=== PATIENT | male | born 1950 | race Caucasian/White ===

== ENCOUNTER 2016-04-14 12:13 | Observation (INO) | payer OTHER, MEDICARE ==
--- NOTE | ~2016-04-14 | CN ---
Consultation Report [facility] [address]. [address] NAME: NICANOR IBRAHIM : 48 STATUS : DIS Aishwarya PAT#: [id number] AGE: 65 ADM/REG DATE : 04/14/16 MR#: [id number] REPORT SERV DATE: 04/15/16 DICTATED BY: DATE: REPORT STATUS : Draft TRANSCRIBED BY: MODL DATE: 04/15/16 NEUROLOGY CONSULTATION DATE OF CONSULTATION: 04/15/2016 REASON FOR CONSULT: Possible TIA. HISTORY OF PRESENT ILLNESS: This is a 65-year-old male who presented to [facility] on 04/14/2016 secondary to TIA-like symptom. The patient reports was reaching up with right arm for item and was noted to have sharp pain radiating from the right arm down to the shoulder and neck. The patient was subsequently noted to have dizzy sensation as if the room is spinning and feels as if he is about to pass out. The patient sat down and within five minutes, the patient's symptoms had completely resolved. The patient reports some tingling sensation in the right shoulder radiating to the right neck and right elbow otherwise denies any weakness. The patient denies any dysarthria, dysphagia, language difficulties, weakness in the arm, or difficulty ambulating with the symptom onset. The patient does have a history of prior stroke. Reports the symptom is not quite as dramatic. The symptom yesterday, the patient was also noted to have severe nausea, as well as sweating. The patient currently does not have any overt symptoms and denies any diplopia, vertigo sensation. The patient currently also denies any focal weakness. The patient denies any prior weakness. The patient denies any current chest pain or chest pain with the symptoms and denies any recent illness, fever, chills, nausea, vomiting, chest pain, or shortness of breath. Of note, the patient does have recent medication adjustment with patient's pravastatin as well as fenofibrate was discontinued due to elevated transaminase. The patient previously was also on anticoagulation secondary to presence of PFO. Also, the patient has stopped this secondary to medication costs. No other changes in medication were otherwise reported. PAST MEDICAL HISTORY: The patient's past medical history is significant for hypertension, history of stroke with no reported residual deficit, history of hyperlipidemia, recent elevation in transaminase with recent stop of pravastatin and fenofibrate, history of previous PFO in the past, so anticoagulation was stopped secondary to cost. FAMILY HISTORY: Significant for hypertension. SOCIAL HISTORY: Denies tobacco, alcohol, recreational drug usage. ALLERGIES: THE PATIENT REPORTS NO KNOWN DRUG ALLERGIES. HOME MEDICATIONS: Consist of allopurinol, amlodipine, aspirin, diclofenac, hydrochlorothiazide, Avapro, omega-3 fatty acid and omeprazole. REVIEW OF SYSTEMS: Negative except for those mentioned in HPI. Consultation Report [address] [place]. [address] NAME: NICANOR IBRAHIM : 49 STATUS : DIS Aishwarya PAT#: [id number] AGE: 65 ADM/REG DATE : 04/14/16 MR#: [id number] REPORT SERV DATE: 04/15/16 DICTATED BY: DATE: REPORT STATUS : Draft TRANSCRIBED BY: JUANITO DATE: 04/15/16 PHYSICAL EXAMINATION: VITAL SIGNS: Overnight, the patient was noted to have vital signs with T-max of 98.6, heart rate of 52 to 73, respiration of 16 to 21, and blood pressure of 142 to 172 over 58 to 100. GENERAL: The patient is well developed, well nourished, in no acute distress. CARDIOVASCULAR: Regular rate and rhythm. No carotid bruits were otherwise auscultated. PULMONARY: Clear to auscultation bilaterally. NEUROLOGIC: Generally, the patient is alert and oriented to person, place, year, and month. Follows simple and 2-step commands. No dysarthria or aphasia was noted. Intact registration and recall. Cranial nerves 2 through 12, pupils equal, round, and reactive to light. Extraocular eye movement was noted to be intact. No nystagmus was seen. Denies diplopia. At the time of evaluation was noted to have symmetrical facial expression and sensation. Midline tongue. Normal palatal movement. Mild decreased hearing in bilateral ears. The patient does have 5/5 bilateral upper and lower extremity strength. No clear pronator drift was otherwise seen. Reports symmetrical sensation bilaterally. Normal [id number] examination without ataxia. Positive reflexes throughout. The patient noted to have normal station and normal gait. LABORATORY STUDIES: Demonstrated white blood cell count of 4.5, hemoglobin of 13.5, hematocrit of 37.9, and platelet count of 129. Chemistry panel; sodium 144, potassium 4.0, chloride 108, bicarb 23, BUN of 27, creatinine 1.01, glucose of 112, calcium of 8.7, magnesium of 1.9, serum cholesterol of 181, HDL of 22 and triglyceride of 438. The patient was noted to have negative hepatitis panel with ALT of 292, AST of 145, TSH of 2.54, and free T4 of 1.0, hemoglobin A1c of 5.2. MRI of the brain otherwise demonstrated no acute process. MRA of the neck demonstrated no significant blockage. Carotid Doppler study was reviewed. Grade 1 stenosis was seen in bilateral internal carotid artery. Echocardiogram is currently pending. Urinalysis demonstrated negative leukocyte esterase, negative nitrite. CT scan of the brain demonstrated no significant acute process. IMPRESSION: 1. Right arm tingling and pain. He has complained of persistent shoulder tingling sensation radiating to the cervical area. The patient reports prior spine injury as well as previous evaluation with MRI. Concern for possible radiculopathy. The was patient demonstrated no focal weakness at this time. We will recommend him conservative therapy. 2. Transient ischemic attack. The patient's dizziness resolved. MRI of the brain is otherwise negative. Symptom onset 04/14/2016 lasting under 5 minutes. Current NIH stroke scale is 0. We are recommending starting the patient on Plavix but continue aspirin 81 mg p.o. daily. We will recommend restart Lipitor 80 mg p.o. at bedtime. Follow up with primary care physician for evaluation of the liver function tests. Otherwise echocardiogram is pending. No significant abnormality was found on echocardiogram. Okay to discharge from Neuro standpoint. RECOMMENDATION: 1. Echocardiogram pending. Consultation Report [address] [place]. [address] NAME: NICANOR IBRAHIM : 48 STATUS : DIS Aishwarya PAT#: [id number] AGE: 65 ADM/REG DATE : 04/14/16 MR#: [id number] REPORT SERV DATE: 04/15/16 DICTATED BY: DATE: REPORT STATUS : Draft TRANSCRIBED BY: JUANITO DATE: 04/15/16 2. Lipitor 80 mg p.o. at bedtime. 3. Aspirin and Plavix. 4. Follow up with PCP after discharge. 5. Okay to discharge from Neuro standpoint after echo. [facility]/JUANITO Nadir Young MD / [id number] CC: Keith Stone MD
--- NOTE | ~2016-04-14 | HP ---
History And Physical [facility] [id number] [place]. [address] NAME: NICANOR IBRAHIM : 48 STATUS : ADM Aishwarya PAT#: [id number] AGE: 65 ADM/REG DATE : 04/14/16 MR#: [id number] REPORT SERV DATE: 04/15/16 DICTATED BY: BC YATES DATE: 04/14/16 REPORT STATUS : Draft TRANSCRIBED BY: MODBeverly DATE: 04/14/16 DATE OF ADMISSION: 04/14/2016 CHIEF COMPLAINT: Presyncope. HISTORY OF PRESENT ILLNESS: This is a 65-year-old man with past medical history of hypertension, prior stroke, and history of PFO, who was prior on anticoagulation, but has discontinued it due to cost. Also, recently being evaluated as an outpatient for transaminitis that was felt to be secondary to statin and fenofibrate combination, which he was recently taken off as of three weeks ago. The patient reports that he was at his usual state of health working when he started to feel some dizziness at work and felt some associated weakness to the right extremities. The patient sat down. Symptoms resolved. Denies any chest pain, shortness of breath, palpitations, diaphoresis, fever, chills, cough, hemoptysis, melena, hematochezia, orthopnea, or abdominal pain. Reports some lower extremity swelling after standing for long periods of time. Denies complete loss of consciousness, slurred speech, blurry vision. The patient was evaluated in the ED. CT of the head, unremarkable. Hospitalist consulted for further inpatient management. ALLERGIES: NO KNOWN DRUG ALLERGIES. HOME MEDICATIONS: Include: 1. Allopurinol 300 mg p.o. at bedtime. 2. Norvasc 10 mg p.o. daily. 3. Aspirin 325 mg p.o. daily. 4. Diclofenac one tab p.o. b.i.d. 5. Hydrochlorothiazide 25 mg p.o. daily. 6. Irbesartan 300 mg p.o. daily. 7. Fish oil 1000 mg one capsule in the morning and two caps at bedtime. 8. Prilosec 20 mg p.o. b.i.d. PAST MEDICAL HISTORY: Significant for, as described above: 1. Hypertension. 2. History of CVA. 3. Hyperlipidemia. 4. Transaminitis presumed secondary to statin and fenofibrate combo. 5. History of PFO. SOCIAL HISTORY: Denies any alcohol, tobacco, or illicit drug use. FAMILY HISTORY: Positive for hypertension. REVIEW OF SYSTEMS: Twelve-point system reviewed, otherwise negative per HPI. PHYSICAL EXAMINATION: VITAL SIGNS: Temperature 97.8, blood pressure 159/91, heart rate 61, respiratory rate 18, O2 History And Physical [address] [address] NAME: NICANOR IBRAHIM : 48 STATUS : ADM Aishwarya PAT#: [id number] AGE: 65 ADM/REG DATE : 04/14/16 MR#: [id number] REPORT SERV DATE: 04/15/16 DICTATED BY: BC YATES DATE: 04/14/16 REPORT STATUS : Draft TRANSCRIBED BY: JUANITO DATE: 04/14/16 saturation 98 on room air. GENERAL: No acute distress. HEENT: EOMI, PERRLA. Nonicteric sclerae. Nonerythematous pharynx. NECK: Supple. No JVD. No lymphadenopathy. RESPIRATORY: Clear to auscultation bilaterally. No wheezes, rhonchi, or crackles. CARDIOVASCULAR: Regular rate and rhythm. No murmurs, rubs, or gallops. ABDOMEN: Bowel sounds positive. Soft, nontender, nondistended. No rebound, no guarding. EXTREMITIES: 2+ edema bilaterally. No cyanosis. Moves all. NEUROLOGICAL: Alert and oriented x3. Nonfocal. LABORATORY DATA: WBC of 5.6, hemoglobin 13.6, hematocrit 38.6, platelets 155. Sodium 142, potassium 4.2, chloride 108, bicarb 25, BUN 34, creatinine 1.27, glucose 119, magnesium 1.9. ALT 292, AST 145, troponin 0.02. IMAGING: Chest x-ray, PA and lateral, impression, right base atelectasis. ASSESSMENT: 1. Presyncope. 2. Hypertension. 3. Prior history of cerebrovascular accident. 4. History of patent foramen ovale. 5. Hyperlipidemia. 6. Transaminitis presumed secondary to statin and fenofibrate combo. PLAN: The patient will be admitted using TIA admission order set. Change aspirin to Plavix. Neurology consult. Check MRI of the head, carotid Dopplers, 2D echo with bubble. Restart appropriate home medications. IV fluids. Labs in the morning. Further evaluation and management per clinical course. CODE STATUS: Full code. DVT PROPHYLAXIS: Lovenox. GI PROPHYLAXIS: PPI. Total time for history and physical, 35 minutes. [facility]/JUANITO Keith Stone MD / [id number] CC: History And Physical [address] [place]. [address] NAME: NICANOR IBRAHIM : 49 STATUS : ADM Aishwarya PAT#: [id number] AGE: 65 ADM/REG DATE : 04/14/16 MR#: [id number] REPORT SERV DATE: 04/15/16 DICTATED BY: BC YATES DATE: 04/14/16 REPORT STATUS : Draft TRANSCRIBED BY: JUANITO DATE: 04/14/16 Keith Stone MD
--- NOTE | ~2016-04-14 | DS ---
Discharge Summary [facility] [address] [facility] [place]. [address] NAME: NICANOR IBRAHIM : 48 STATUS : DIS Aishwarya PAT#: [id number] AGE: 65 ADM/REG DATE : 04/14/16 MR#: [id number] REPORT SERV DATE: 04/16/16 DICTATED BY: BC YATES DATE: 04/15/16 REPORT STATUS : Draft TRANSCRIBED BY: JUANITO DATE: 04/15/16 ADMISSION DATE: 04/14/2016 DISCHARGE DATE: 04/15/2016 DISCHARGE DIAGNOSES: 1. Transient ischemic attack. 2. Uncontrolled hypertension. 3. Mild dehydration. 4. History of cerebrovascular accident. 5. Transaminitis secondary to statins and fenofibrate combo. Hepatitis panel negative. 6. Hyperlipidemia with LDL at 159. 7. History of patent foramen ovale. DISCHARGE MEDICATIONS: 1. Allopurinol 300 mg p.o. at bedtime. 2. Norvasc 10 mg p.o. daily. 3. Aspirin 81 mg p.o. daily. 4. Plavix 75 mg p.o. daily. 5. Lipitor 80 mg at bedtime. Hold until discussed with primary care physician due to elevated liver enzymes. 6. Avapro 300 mg p.o. daily. 7. Fish oil 1000 mg p.o. in a.m. and 2 capsules at bedtime. 8. Prilosec 20 mg p.o. b.i.d. 9. Hydrochlorothiazide 25 mg p.o. daily. 10.Hydralazine 25 mg p.o. b.i.d. DISPOSITION AND FOLLOWUP: The patient medically stable for discharge. Follow up with primary care physician in 1 week to recheck blood pressure. Continue to hold statins for the next 2 to 3 months and evaluate with liver function and liver test improve, can then resume Pravachol low dose if liver functions return to normal. Further discussion with the primary care physician as an outpatient. Follow up with Neurology and Cardiology as directed. HISTORY AND PHYSICAL: Per initial assessment. DISCHARGE VITALS: Temperature 97.9, heart rate 61, blood pressure 158/92, respiratory rate 14, and O2 saturation 96 on room air. DISCHARGE LABS: WBC of 4.5, hemoglobin 13.5, hematocrit 37.9, and platelets 129. Sodium 144, potassium 4, chloride 108. D-dimer less than 0.27, bicarb 23, BUN 27, creatinine 1.01, and glucose 112. LDL 159, triglycerides 438, CPK 175, CK-MB 88.5, and troponin 0.02. TSH 2.5, free T4 of 1. Hemoglobin A1c of 5.2. Hepatitis panel negative. IMAGING: CT of the head without contrast, impression: 1. No acute CVA or other acute intracranial pathology. 2. Old lacunar infarct lateral margin of the left thalamus at the site of previous acute Discharge Summary [address] [address] NAME: NICANOR IBRAHIM : 48 STATUS : DIS Aishwarya PAT#: [id number] AGE: 65 ADM/REG DATE : 04/14/16 MR#: [id number] REPORT SERV DATE: 04/16/16 DICTATED BY: BC YATES DATE: 04/15/16 REPORT STATUS : Draft TRANSCRIBED BY: JUANITO DATE: 04/15/16 CVA. 3. Mild diffuse cerebral involutional changes. Carotid Dopplers, impression: Normal right and left carotid less than 50% luminal stenosis. Chest x-ray, impression: Right base atelectasis, small amount. MRI and MRA of the head, impression: 1. Mild chronic small-vessel ischemic changes. No acute finding in the brain. Negative MRA of [place]. 2. Congenital variation, aberrant right subclavian artery. Otherwise negative MRA of the neck. 2D echo, impression: Normal left ventricular systolic function with estimated ejection fracture 50% to 55%. Mild diastolic dysfunction. Normal right ventricular chamber size and systolic function. Mild AR. Bubble study positive. No regional wall motion abnormalities. No pericardial effusion. No pleural effusion. HOSPITAL COURSE: This is a 65-year-old man with past medical history of previous CVA and known PFO, comes into the ED complaining of dizziness. The patient was hospitalized for further evaluation of TIA symptoms. The patient has been evaluated for elevated liver enzymes. Possibly secondary to cholesterol medication. The patient recently was taken off his statin and fenofibrate 2 weeks prior to admission. Hepatitis panel was negative. MRI and MRA of the head did not show any acute CVA. Neurology was consulted. The patient will be placed on Plavix in addition to low-dose aspirin for secondary prevention. He was noticed to have uncontrolled blood pressure. He will be started on hydralazine for better control. Instructed to resume his Norvasc and hydrochlorothiazide. He will follow with primary care physician in 1 week to recheck blood pressure. The patient was noted to be mildly dehydrated. He does report that he drinks around 10 cups of coffee a day. Instructed to diminish amount of coffee consumption to 1 to 2 glasses per day and increase water consumption as to prevent dehydration from diuretics. The patient was noted to have LDL above goal, but due to elevated liver enzymes, recommendations will be to hold off on further statins until LFTs have been further evaluated as an outpatient. If liver enzymes do improve with discontinuation of statin and fenofibrate in 2 to 3 months, may consider starting a low-dose Pravachol for hyperlipidemia. The patient should follow up with primary care physician in 1 week. Follow up with Cardiology and Neurology as directed. The patient medically stable for discharge. Total time for discharge planning 35 minutes. [facility]/JUANITO Keith Stone MD / [id number] Discharge Summary [address] [address] NAME: NICANOR IBRAHIM : 48 STATUS : DIS Aishwarya PAT#: [id number] AGE: 65 ADM/REG DATE : 04/14/16 MR#: [id number] REPORT SERV DATE: 04/16/16 DICTATED BY: BC YATES DATE: 04/15/16 REPORT STATUS : Draft TRANSCRIBED BY: JUANITO DATE: 04/15/16 CC: Keith Stone MD
[~2016-04-14 12:13] MED LIST: ALEVE220 MG PO; ARTHROTEC 75 PO; ARTHROTEC PO; ASABAYER PO; BENADRYL 50 MG50 MG PO; C5; COZ25 PO; FISH OIL1200 MG PO; GLUCCHONDR PO; HCTZ25B PO; HYZAAR 100/25 T1 TAB PO; HYZAAR 50/12.51 TAB PO; LORTAB 5 PO; MULTIVIT/MIN PO; NEUR300 PO; NORCO1 TA1 PO; NORV10 PO; NORV5 PO; PLAVIX PO; PRAVAC PO; PREV15 PO; SEPTRA DS1 TAB PO; VICODINTAB PO; VOLT75 PO; Z300 PO
[2016-04-14 13:13] LABS: BASOPHILS 0.5 %; BASOPHILS ABSOLUTE 0.03 10/3/uL (0.0-0.16); EOSINOPHILS 2.3 %; EOSINOPHILS ABSOLUTE 0.13 10/3/uL (0.0-0.53); ER CBC TAT 0 Hrs 07 Mins; HEMATOCRIT 38.6 % (40.0-51.0); HEMOGLOBIN 13.6 g/dL (13.6-17.8); IMMATURE GRANULOCYTES 0.2 %; IMMATURE GRANULOCYTES ABSOLUTE 0.01 10/3/uL (0.0-0.11); LYMPHOCYTES 16.2 %; LYMPHOCYTES ABSOLUTE 0.91 10/3/uL (0.67-4.30); MANUAL DIFF NO %; MEAN CORPUS HGB CONC 35.2 g/dL (32.0-36.0); MEAN CORPUSCULAR HEMOGLOB 33.2 pg (26.0-34.0); MEAN CORPUSCULAR VOLUME 94.1 fL (80-100); MEAN PLATELET VOLUME 11.2 fL (9.2-13.0); MONOCYTES 5.9 %; MONOCYTES ABSOLUTE 0.33 10/3/uL (0.21-1.20); NEUTROPHILS 74.9 %; NEUTROPHILS ABSOLUTE 4.21 10/3/uL (2.02-8.40); PLATELET COUNT 155 10/3/uL (150-400); RBC DISTRIBUTION WIDTH 13.7 % (12.0-16.0); WHITE BLOOD CELLS 5.6 10/3/uL (4.5-10.5)
[2016-04-14 13:20] LABS: ASCORBIC ACID (UR NOT ORDER) NEG (NEG); BILIRUBIN, URINE NEGATIVE (NEG); ER URINALYSIS TAT 0 Hrs 14 Mins; KETONE, URINE NEGATIVE (NEG); LEUKOCYTE ESTERASE(NOT OR NEG (NEG); NITRITE (URINE) NEG (NEG); WBC (NOT ORDERED) (RFLEX) 4 (0-5)
[2016-04-14 13:23] LABS: INTERNATIONAL NORMAL RATI 1.1 UNITS (-); PARTIAL THROMBO TIME 26.9 SEC (22.5-37.2); PROTIME (NOT ORD) 13.8 SEC (12.0-14.5)
[2016-04-14 13:30] LABS: CHEST PAIN PROFILE TAT 0 Hrs 24 Mins; CHLORIDE, SERUM 108 MMOL/L (96-112); CO2 (CARBON DIOXIDE) 25 MMOL/L (24-34); CREATININE 1.27 MG/DL (0.70-1.30); GFR AFRICAN AMERICAN 68 ML/MIN (>=60); GFR NON AFRICAN AMERICAN 58 ML/MIN (>=60); GLUCOSE, SERUM 119 MG/DL (60-99); POTASSIUM, SERUM 4.2 MMOL/L (3.5-5.3); SODIUM, SERUM 142 MMOL/L (135-148); TROPONIN I 0.02 NG/ML (<0.05)
[2016-04-14 13:31] LABS: BUN (BLOOD UREA NITROGEN) 34 MG/DL (6-23); CALCIUM, SERUM 8.8 MG/DL (8.5-10.4)
[2016-04-14 16:21] LABS: ALBUMIN 3.8 G/DL (3.5-5.0); ALKALINE PHOSPHATASE 84 U/L (45-117); SGOT(AST) 145 U/L (5-40); SGPT(ALT) 292 U/L (5-65); TOTAL PROTEIN 6.9 G/DL (6.0-8.5)
[2016-04-14 16:22] LABS: DIRECT BILIRUBIN < 0.1 MG/DL (0.0-0.4); INDIRECT BILIRUBIN(NOT ORDER) 0.3 MG/DL (0.1-0.9); TOTAL BILIRUBIN 0.4 MG/DL (0-1.2)
[2016-04-14] MEDS ORDERED: ASABAYER PO (16:32)
[2016-04-14] MEDS ORDERED: FISH-EPA1000 MG PO (16:32)
[2016-04-14] MEDS ORDERED: AVAPRO300 MG PO (16:32)
[2016-04-14] MEDS ORDERED: HYDROCHLOROT25 MG PO (16:33)
[2016-04-14] MEDS ORDERED: PRILO PO (16:33)
[2016-04-14] MEDS ORDERED: ARTHROTEC 75 PO (16:33)
[2016-04-14] MEDS ORDERED: NORV10 PO (16:34)
[2016-04-14 22:49] LABS: CK-MB 11.8 NG/ML; CKMB INDEX (NOT ORD) 2.6; TROPONIN I 0.03 NG/ML (<0.05)
[2016-04-15 05:16] LABS: BASOPHILS 0.9 %; BASOPHILS ABSOLUTE 0.04 10/3/uL (0.0-0.16); EOSINOPHILS 5.3 %; EOSINOPHILS ABSOLUTE 0.24 10/3/uL (0.0-0.53); HEMATOCRIT 37.9 % (40.0-51.0); HEMOGLOBIN 13.5 g/dL (13.6-17.8); IMMATURE GRANULOCYTES 0.4 %; IMMATURE GRANULOCYTES ABSOLUTE 0.02 10/3/uL (0.0-0.11); LYMPHOCYTES 25.3 %; LYMPHOCYTES ABSOLUTE 1.14 10/3/uL (0.67-4.30); MEAN CORPUS HGB CONC 35.6 g/dL (32.0-36.0); MEAN CORPUSCULAR HEMOGLOB 34.6 pg (26.0-34.0); MEAN PLATELET VOLUME 10.2 fL (9.2-13.0); MONOCYTES 8.2 %; MONOCYTES ABSOLUTE 0.37 10/3/uL (0.21-1.20); NEUTROPHILS 59.9 %; PLATELET COUNT 129 10/3/uL (150-400); RBC DISTRIBUTION WIDTH 13.4 % (12.0-16.0); WHITE BLOOD CELLS 4.5 10/3/uL (4.5-10.5)
[2016-04-15 05:17] LABS: MANUAL DIFF NO %; MEAN CORPUSCULAR VOLUME 97.2 fL (80-100)
[2016-04-15 05:34] LABS: CALCIUM, SERUM 8.7 MG/DL (8.5-10.4); CHLORIDE, SERUM 108 MMOL/L (96-112); CK-MB 9.8 NG/ML; CO2 (CARBON DIOXIDE) 23 MMOL/L (24-34); CPK 202 U/L (0-200); CREATININE 1.01 MG/DL (0.70-1.30); GFR AFRICAN AMERICAN 89 ML/MIN (>=60); GFR NON AFRICAN AMERICAN 77 ML/MIN (>=60); GLUCOSE, SERUM 112 MG/DL (60-99); HDL CHOLESTEROL 22 MG/DL (> 39); SODIUM, SERUM 144 MMOL/L (135-148); TROPONIN I 0.02 NG/ML (<0.05)
[2016-04-15 05:46] LABS: BUN (BLOOD UREA NITROGEN) 27 MG/DL (6-23); CHOL/HDL RATIO(NOT ORDER) 8.2 (0-5); CHOLESTEROL 181 MG/DL (< 200); CKMB INDEX (NOT ORD) 4.9; NON-HDL CHOLESTEROL 159 MG/DL (< 160); TRIGLYCERIDE 438 MG/DL (< 150)
[2016-04-15 10:04] LABS: HEPATITIS B SURFACE ANTIGEN NON-REACTIVE (NON-REACT)
[2016-04-15 10:11] LABS: HEPATITIS B CORE AB IGM NON-REACTIVE (NON-REAC); HEPATITIS C ANTIBODY NON-REACTIVE (NON-REACT)
[2016-04-15 10:13] LABS: HEP A ANTIBODY IGM NON-REACTIVE (NON-REACT)
[2016-04-15 13:45] LABS: CK-MB 8.5 NG/ML; TROPONIN I 0.02 NG/ML (<0.05)
[2016-04-15 13:46] LABS: CKMB INDEX (NOT ORD) 4.9
[2016-04-15] MEDS ORDERED: LIPITOR80 MG (14:53)
[2016-04-15] MEDS ORDERED: PLAVIX PO (14:54)
[2016-04-15] MEDS ORDERED: APRES25 PO (14:58)
== END 2016-04-15 15:39 | disposition home or self-care (01) ==
LOC: ENRESERVDT → ENRESERV → ENRESERVTM → ER 12:13 → CDU1 18:24
PROVIDERS: Emergency Medicine; Hospitalist
DX: R55 Syncope and collapse (principal); I10 Essential (primary) hypertension; E78.5 Hyperlipidemia, unspecified; M79.601 Pain in right arm; G45.9 Transient cerebral ischemic attack, unspecified; E86.0 Dehydration; Z86.73 Personal history of transient ischemic attack (TIA), and cerebral infarction without residual deficits; Z79.82 Long term (current) use of aspirin; Z79.899 Other long term (current) drug therapy; R74.0 Nonspecific elevation of levels of transaminase and lactic acid dehydrogenase [LDH]
CPT/HCPCS: 70450; 70544; 70548; 70551; 71020; 80048; 80061; 80074; 80076; 81001; 82550; 82553; 82962; 83036; 83735; 84439; 84443; 84484; 85025; 85379; 85610; 85730; 93005; 93306; 93880; 96372; 99285; A9270-GY; A9577; G0378